=== PATIENT | male | born 1945 | race Caucasian/White ===

== ENCOUNTER 2018-10-09 17:13 | Emergency (ER) | payer MEDICARE ==
[~2018-10-09] VITALS: Ht 180.3 cm; Wt 120.0 kg
[~2018-10-09 17:13] MED LIST: ACCOLATE10 MG; AMOXICILLIN500 MG OR; HYDROCHLORO25 MG/TAB PO; MEDDOSEPAK OR; NOT SURE OF MEDS; TERAZOSIN; TERAZOSIN1 MG PO
[2018-10-09 17:45] LABS: HEMATOCRIT 39.1 % (39.0-50.0); HEMOGLOBIN 13.4 g/dl (14.0-18.0); IMMATURE GRANULOCYTES 0.3 % (0.0-5.0); MEAN CORPUSCULAR HGB 31.5 pG CALC (26.0-32.0); MEAN CORPUSCULAR HGB CONC 34.3 g/L CALC (32.0-36.0); NEUT# 3.02 thou/uL (1.82-7.42); RED BLOOD COUNT 4.25 mill/uL (4.70-6.10); RED CELL DISTRI WIDTH 12.5 % (11.5-15.5)
[2018-10-09] MEDS ORDERED: PROSCAR5 MG PO (17:47)
[2018-10-09] MEDS ORDERED: AMLODIPINE5 MG PO (17:48)
[2018-10-09] MEDS ORDERED: ASPIRIN81 MG PO (17:48)
[2018-10-09] MEDS ORDERED: LIPITOR80 M1 PO (17:48)
[2018-10-09] MEDS ORDERED: ULTRA COQ1075 MG PO (17:49)
[2018-10-09] MEDS ORDERED: ACETAMIN500 M2 PO (17:50)
[2018-10-09 18:03] LABS: ALBUMIN 4.4 g/dL (3.2-5.0); ALKALINE PHOSPHATASE 73 u/l (38-126); ANION GAP 14 (6-22 (CALC)); BILIRUBIN, TOTAL 0.8 mg/dL (0.0-1.4); BUN 15 mg/dL (8-23); BUN/CREATININE RATIO 18 (12-20 (CALC)); CARBON DIOXIDE 24 mmol/l (22-30); CHLORIDE 108 mmol/l (95-108); CREATININE 0.8 mg/dL (0.7-1.3); GFR > 60 ML/MIN (>=60 (CALC)); GFR FOR AFR.AMER. > 60 ML/MIN (>=60 (CALC)); LIPASE 154 u/l (23-300); SGOT/AST 34 u/l (19-48); SODIUM 141 mmol/l (137-146); TOTAL PROTEIN 7.2 g/dL (6.3-8.2)
[2018-10-09 21:16] VITALS: BP 118/62
== END 2018-10-09 21:22 | disposition home or self-care (01) ==
LOC: ED 17:13
PROVIDERS: Emergency Medicine
DX: R07.9 Chest pain, unspecified (principal); I10 Essential (primary) hypertension; I25.10 Atherosclerotic heart disease of native coronary artery without angina pectoris; K21.9 Gastro-esophageal reflux disease without esophagitis; I25.2 Old myocardial infarction; Z95.5 Presence of coronary angioplasty implant and graft

== ENCOUNTER 2020-09-05 07:40 | Emergency (ER) | payer MEDICARE ==
[~2020-09-05] VITALS: Ht 180.3 cm; Wt 123.0 kg
[~2020-09-05 07:40] MED LIST changes: +ACETAMIN500 M2 PO; +AMLODIPINE5 MG PO; +ASPIRIN81 MG PO; +LIPITOR80 M1 PO; +PROSCAR5 MG PO; +ULTRA COQ1075 MG PO
[2020-09-05 07:56] VITALS: BP 145/75
[2020-09-05] MEDS ORDERED: NAPROXEN500 MG PO (08:18)
== END 2020-09-05 08:35 | disposition home or self-care (01) ==
LOC: ED 07:40
PROC: 2W3DX1Z Immobilization of Left Lower Arm using Splint (ICD-10-PCS; principal; 2020-09-05)
DX: S52.502A Unspecified fracture of the lower end of left radius, initial encounter for closed fracture (principal); I10 Essential (primary) hypertension; K21.9 Gastro-esophageal reflux disease without esophagitis; I25.10 Atherosclerotic heart disease of native coronary artery without angina pectoris; W19.XXXA Unspecified fall, initial encounter; Z95.5 Presence of coronary angioplasty implant and graft

== ENCOUNTER 2021-01-22 12:43 | Emergency (ER) | payer MEDICARE ==
[~2021-01-22] VITALS: Ht 180.3 cm; Wt 115.0 kg
[~2021-01-22 12:43] MED LIST changes: +NAPROXEN500 MG PO
[2021-01-22 14:20] VITALS: BP 142/62
== END 2021-01-22 14:38 | disposition home or self-care (01) ==
LOC: ED 12:43
DX: R07.81 Pleurodynia (principal); I10 Essential (primary) hypertension; I25.10 Atherosclerotic heart disease of native coronary artery without angina pectoris; K21.9 Gastro-esophageal reflux disease without esophagitis; E66.9 Obesity, unspecified; I25.2 Old myocardial infarction; X50.0XXA Overexertion from strenuous movement or load, initial encounter; Y93.H2 Activity, gardening and landscaping; Y92.007 Garden or yard of unspecified non-institutional (private) residence as the place of occurrence of the external cause; Z95.5 Presence of coronary angioplasty implant and graft

== ENCOUNTER 2022-02-02 20:47 | Emergency (ER) | payer MEDICARE ==
[~2022-02-02] VITALS: Ht 180.3 cm; Wt 113.0 kg
[2022-02-02] VITALS (7 sets, daily range): BP systolic 124–150; BP diastolic 55–64
[2022-02-02 21:53] LABS: HEMATOCRIT 37.2 % (39.0-50.0); HEMOGLOBIN 12.8 g/dl (14.0-18.0); IMMATURE GRANULOCYTES 0.2 % (0.0-5.0); MEAN CELL VOLUME 94.7 fL CALC (80.0-100.0); MEAN CORPUSCULAR HGB 32.6 pG CALC (26.0-32.0); MEAN CORPUSCULAR HGB CONC 34.4 g/dL CAL (32.0-36.0); NEUT# 3.16 thou/uL (1.82-7.42); RED BLOOD COUNT 3.93 mill/uL (4.70-6.10); RED CELL DISTRI WIDTH 12.7 % (11.5-15.5)
[2022-02-02 22:03] LABS: ALBUMIN 4.2 g/dL (3.2-5.0); ALKALINE PHOSPHATASE 78 u/l (38-126); AMYLASE 62 u/l (30-110); ANION GAP 12 (6-22 (CALC)); BILIRUBIN, TOTAL 0.8 mg/dL (0.0-1.4); BUN 17 mg/dL (8-23); BUN/CREATININE RATIO 21 (12-20 (CALC)); CARBON DIOXIDE 25 mmol/l (22-30); CHLORIDE 106 mmol/l (95-108); CREATININE 0.8 mg/dL (0.7-1.3); GFR FOR AFR.AMER. > 60 ML/MIN (>=60 (CALC)); GFR OTHER RACES > 60 ML/MIN (>=60 (CALC)); LIPASE 78 u/l (23-300); POTASSIUM 3.4 mmol/l (3.5-5.1); SGOT/AST 28 u/l (19-48); SODIUM 139 mmol/l (137-146); TOTAL PROTEIN 7.1 g/dL (6.3-8.2)
[2022-02-02 22:15] LABS: MYOGLOBIN 102 ng/mL (0 - 121)
[2022-02-02] MEDS ORDERED: NAPROXEN500 MG PO (22:47)
[2022-02-02 22:53] LABS: URINE BILIRUBIN - DIPSTICK NEGATIVE (NEGATIVE); URINE BLOOD DIPSTICK TRACE-INTACT (NEGATIVE); URINE COLOR YELLOW; URINE GLUCOSE - DIPSTICK NEGATIVE (NEGATIVE); URINE KETONE NEGATIVE (NEGATIVE); URINE LEUK ESTERASE NEGATIVE (NEGATIVE); URINE PROTEIN - DIPSTICK NEGATIVE (NEG-TRACE); URINE SPECIFIC GRAVITY 1.025
[2022-02-02 22:54] LABS: URINE NITRITE - DIPSTICK NEGATIVE (Negative)
== END 2022-02-02 23:21 | disposition home or self-care (01) ==
LOC: ED 20:47
PROVIDERS: Emergency Medicine
DX: R07.89 Other chest pain (principal); I10 Essential (primary) hypertension; I25.10 Atherosclerotic heart disease of native coronary artery without angina pectoris; I25.2 Old myocardial infarction; K21.9 Gastro-esophageal reflux disease without esophagitis

== ENCOUNTER 2022-03-06 16:33 | Observation (INO) | payer MEDICARE ==
[~2022-03-06] VITALS: Ht 180.3 cm; Wt 107.2 kg
[2022-03-06] VITALS (7 sets, daily range): BP systolic 118–143; BP diastolic 57–69
[2022-03-06 17:15] LABS: HEMATOCRIT 40.6 % (39.0-50.0); HEMOGLOBIN 13.7 g/dl (14.0-18.0); MEAN CORPUSCULAR HGB 31.7 pG CALC (26.0-32.0); MEAN CORPUSCULAR HGB CONC 33.7 g/dL CAL (32.0-36.0); NEUT# 3.4 thou/uL (1.82-7.42); RED BLOOD COUNT 4.32 mill/uL (4.70-6.10); RED CELL DISTRI WIDTH 12.3 % (11.5-15.5)
[2022-03-06 17:27] LABS: ALBUMIN 4.2 g/dL (3.2-5.0); ALKALINE PHOSPHATASE 77 u/l (38-126); ANION GAP 12 (6-22 (CALC)); BILIRUBIN, TOTAL 0.6 mg/dL (0.0-1.4); BUN 11 mg/dL (8-23); BUN/CREATININE RATIO 15 (12-20 (CALC)); CARBON DIOXIDE 25 mmol/l (22-30); CHLORIDE 106 mmol/l (95-108); CREATININE 0.8 mg/dL (0.7-1.3); GFR FOR AFR.AMER. > 60 ML/MIN (>=60 (CALC)); GFR OTHER RACES > 60 ML/MIN (>=60 (CALC)); POTASSIUM 3.9 mmol/l (3.5-5.1); SGOT/AST 31 u/l (19-48); SODIUM 139 mmol/l (137-146); TOTAL PROTEIN 7.3 g/dL (6.3-8.2)
[2022-03-06 17:39] LABS: MYOGLOBIN 160 ng/mL (0 - 121)
[2022-03-07 00:10] VITALS: BP 106/49
[2022-03-07 04:51] VITALS: BP 134/61
[2022-03-07 07:13] VITALS: BP 144/69
[2022-03-07 08:12] VITALS: BP 117/66
[2022-03-07 10:40] VITALS: BP 125/57
== END 2022-03-07 12:13 | disposition home or self-care (01) ==
LOC: ED 16:33 → ED-I 18:20 → ED 18:31 → MS2 18:32
PROVIDERS: Nurse Practitioner; ADMIT Internal Medicine; ATTEND Internal Medicine
DX: R07.9 Chest pain, unspecified (principal); I10 Essential (primary) hypertension; I25.10 Atherosclerotic heart disease of native coronary artery without angina pectoris; E78.5 Hyperlipidemia, unspecified; K21.9 Gastro-esophageal reflux disease without esophagitis; I25.2 Old myocardial infarction; Z95.5 Presence of coronary angioplasty implant and graft

== ENCOUNTER 2022-08-11 14:11 | Observation (INO) | payer MEDICARE ==
[~2022-08-11] VITALS: Ht 180.3 cm; Wt 110.0 kg
[2022-08-11] VITALS (15 sets, daily range): BP systolic 118–160; BP diastolic 59–83
[2022-08-11 14:50] LABS: BASO% 0.5 % (0-3); EOS% 3.8 % (0-8); HEMATOCRIT 39.2 % (39.0-50.0); HEMOGLOBIN 13.5 g/dl (14.0-18.0); MEAN CELL VOLUME 93.1 fL CALC (80.0-100.0); MEAN CORPUSCULAR HGB 32.1 pG CALC (26.0-32.0); MEAN CORPUSCULAR HGB CONC 34.4 g/dL CAL (32.0-36.0); MONO% 10.6 % (2-13); NEUT# 3.33 thou/uL (1.82-7.42); NEUT% 60.1 % (42-76); RED BLOOD COUNT 4.21 mill/uL (4.70-6.10); RED CELL DISTRI WIDTH 12.6 % (11.5-15.5)
[2022-08-11] MEDS ORDERED: PROTONIX40 M2 PO (14:54)
[2022-08-11 15:03] LABS: ALBUMIN 4.1 g/dL (3.2-5.0); ALKALINE PHOSPHATASE 78 u/l (38-126); BILIRUBIN, TOTAL 0.5 mg/dL (0.2-1.3); BUN 10 mg/dL (8-23); BUN/CREATININE RATIO 14 (12-20 (CALC)); CARBON DIOXIDE 24 mmol/l (22-30); CHLORIDE 106 mmol/l (95-108); CREATININE 0.7 mg/dL (0.7-1.3); GFR FOR AFR.AMER. > 60 ML/MIN (>=60 (CALC)); GFR OTHER RACES > 60 ML/MIN (>=60 (CALC)); LIPASE 87 u/l (23-300); SGOT/AST 35 u/l (19-48); SODIUM 138 mmol/l (137-146); TOTAL PROTEIN 7.1 g/dL (6.3-8.2)
[2022-08-11 15:06] LABS: ANION GAP 12 (6-22 (CALC)); POTASSIUM 3.8 mmol/l (3.5-5.1)
[2022-08-11 15:39] LABS: URINE BILIRUBIN - DIPSTICK NEGATIVE (NEGATIVE); URINE BLOOD DIPSTICK NEGATIVE (NEGATIVE); URINE COLOR YELLOW; URINE GLUCOSE - DIPSTICK NEGATIVE (NEGATIVE); URINE KETONE NEGATIVE (NEGATIVE); URINE LEUK ESTERASE NEGATIVE (NEGATIVE); URINE PROTEIN - DIPSTICK NEGATIVE (NEG-TRACE); URINE SPECIFIC GRAVITY <=1.005; URINE UROBILINOGEN - DIPSTICK 0.2 E.U./dL (0.2)
[2022-08-11 15:40] LABS: URINE NITRITE - DIPSTICK NEGATIVE (Negative)
[2022-08-12 04:16] VITALS: BP 153/62
[2022-08-12 04:46] VITALS: BP 153/62
[2022-08-12 06:01] LABS: CHOLESTEROL HDL RATIO 3.3 (<4.4 (CALC))
[2022-08-12 08:54] VITALS: BP 142/79
== END 2022-08-12 10:40 | disposition home or self-care (01) ==
LOC: ED 14:11 → ED-I 15:10 → ED 15:41 → MS2 15:42
PROVIDERS: Nurse Practitioner; ADMIT Internal Medicine; ATTEND Internal Medicine
DX: R07.9 Chest pain, unspecified (principal); R10.13 Epigastric pain; I10 Essential (primary) hypertension; I25.10 Atherosclerotic heart disease of native coronary artery without angina pectoris; E78.5 Hyperlipidemia, unspecified; I25.2 Old myocardial infarction; Z95.5 Presence of coronary angioplasty implant and graft
CPT/HCPCS: J1650

== ENCOUNTER 2022-10-10 11:26 | Emergency (ER) | payer MEDICARE ==
[~2022-10-10] VITALS: Ht 180.3 cm; Wt 109.0 kg
[~2022-10-10 11:26] MED LIST changes: +PROTONIX40 M2 PO
[2022-10-10 11:31] VITALS: BP 136/68
[2022-10-10 12:01] VITALS: BP 115/62
[2022-10-10] MEDS ORDERED: AMOX/K CLAV875 M1 PO (12:32)
[2022-10-10 12:36] VITALS: BP 115/62
== END 2022-10-10 12:42 | disposition home or self-care (01) ==
LOC: ED 11:26
PROC: 0HQFXZZ Repair Right Hand Skin, External Approach (ICD-10-PCS; principal; 2022-10-10)
DX: S61.451A Open bite of right hand, initial encounter (principal); I10 Essential (primary) hypertension; K21.9 Gastro-esophageal reflux disease without esophagitis; I25.10 Atherosclerotic heart disease of native coronary artery without angina pectoris; I25.2 Old myocardial infarction; W54.0XXA Bitten by dog, initial encounter; Y93.89 Activity, other specified; Y92.009 Unspecified place in unspecified non-institutional (private) residence as the place of occurrence of the external cause; Z95.5 Presence of coronary angioplasty implant and graft

== ENCOUNTER 2022-10-13 12:25 | Emergency (ER) | payer MEDICARE ==
[~2022-10-13] VITALS: Ht 180.3 cm; Wt 108.0 kg
[~2022-10-13 12:25] MED LIST changes: +AMOX/K CLAV875 M1 PO
[2022-10-13 13:22] VITALS: BP 153/78
== END 2022-10-13 13:23 | disposition home or self-care (01) ==
LOC: ED 12:25
DX: S61.411D Laceration without foreign body of right hand, subsequent encounter (principal); I25.10 Atherosclerotic heart disease of native coronary artery without angina pectoris; I25.2 Old myocardial infarction; K21.9 Gastro-esophageal reflux disease without esophagitis; X58.XXXD Exposure to other specified factors, subsequent encounter; Z95.5 Presence of coronary angioplasty implant and graft

== ENCOUNTER 2022-10-18 14:52 | Emergency (ER) | payer MEDICARE ==
[~2022-10-18] VITALS: Ht 180.3 cm; Wt 109.1 kg
[2022-10-18 15:20] VITALS: BP 126/71
== END 2022-10-18 15:22 | disposition home or self-care (01) ==
LOC: ED 14:52
DX: S61.411D Laceration without foreign body of right hand, subsequent encounter (principal); I10 Essential (primary) hypertension; I25.10 Atherosclerotic heart disease of native coronary artery without angina pectoris; K21.9 Gastro-esophageal reflux disease without esophagitis; I25.2 Old myocardial infarction; X58.XXXD Exposure to other specified factors, subsequent encounter; Z95.5 Presence of coronary angioplasty implant and graft

== ENCOUNTER 2023-11-05 09:18 | Emergency (ER) | payer MEDICARE ==
[2023-11-05] VITALS (8 sets, daily range): BP systolic 134–151; BP diastolic 60–72
[~2023-11-05] VITALS: Ht 180.3 cm; Wt 111.0 kg
== END 2023-11-05 11:09 | disposition home or self-care (01) ==
LOC: ED 09:18
DX: M79.641 Pain in right hand (principal); I10 Essential (primary) hypertension; I25.10 Atherosclerotic heart disease of native coronary artery without angina pectoris; K21.9 Gastro-esophageal reflux disease without esophagitis; I25.2 Old myocardial infarction

== ENCOUNTER 2024-04-05 11:30 | Emergency (ER) | payer MEDICARE ==
[~2024-04-05] VITALS: Ht 180.3 cm; Wt 125.0 kg
[2024-04-05 13:17] VITALS: BP 137/67
[2024-04-05 13:30] VITALS: BP 142/72
[2024-04-05] MEDS ORDERED: ZITHROMAX250 MG PO (14:33)
[2024-04-05 14:45] VITALS: BP 142/72
== END 2024-04-05 14:45 | disposition home or self-care (01) ==
LOC: ED 11:30
DX: J18.9 Pneumonia, unspecified organism (principal); I10 Essential (primary) hypertension; K21.9 Gastro-esophageal reflux disease without esophagitis; I25.10 Atherosclerotic heart disease of native coronary artery without angina pectoris; I25.2 Old myocardial infarction; Z95.5 Presence of coronary angioplasty implant and graft; Z87.01 Personal history of pneumonia (recurrent)